=== PATIENT | female | born 1945 ===

== ENCOUNTER 2017-10-13 06:34 | Day surgery (SDC) | payer MEDICARE ==
[2017-10-13 06:55] VITALS: BMI 28.2
[2017-10-13] MEDS ORDERED: Lactated Ringer's 1,000 ML IV ONE ×2 (08:14)
--- NOTE | 2017-10-13 08:19 | CP.SDSHP ---
Same Day Surgery H & P - History Proposed Procedure: EGD Pre-Op Diagnosis: SEE NOTES - Previous Medical/Surgical History Neuro: Other Misc: Other Pain: 4.Moderate Pain - Allergies Allergies: Allergies seafood Allergy (Intermediate, Uncoded 10/13/17 06:54) RASH - Physical Exam General Appearance: N Vital Signs: Vital Signs 10/13/17 07:24 Temperature 97.5 F L Pulse Rate 72 Respiratory 19 Rate Blood Pressure 133/69 O2 Sat by Pulse 98 Oximetry Mental Status: Alert & Oriented x3 Neuro: WNL Heart: Other Lungs: WNL GI: Other - {Optional Preform as Required} Breast: WNL Abdomen: Other Rectal: Other Integument: WNL : WNL Ortho: Other ENT: WNL - Impression Pt. Evaluated Today:Candidate for Anesthesia & Procedure: Yes - Date & Time Time: 08:20 Short Stay Discharge - Short Stay Discharge Admitting Diagnosis/Reason for Visit: ABDOMINAL PAIN, DYSPEPSIA Disposition: HOME/ ROUTINE
[2017-10-13] MEDS ORDERED: Propofol 10 mg/ml Inj (20 ML) ONE (08:22)
[2017-10-13 08:26] VITALS: O2SAT 100
[2017-10-13] MEDS ORDERED: Lactated Ringer's 500 ML IV SCH (08:30)
[2017-10-13] MEDS ORDERED: Pantoprazole 40 mg EC Tab PO ONE (08:50)
[2017-10-13] MEDS ORDERED: Belladonna-Phenobarbital PO ONE (08:50)
[2017-10-13 09:02] VITALS: TEMP 97
[2017-10-13 09:16] VITALS: RESP 15
[2017-10-13 10:20] VITALS: BP 127/68; PULSE 64
== END 2017-10-13 09:50 | disposition home or self-care (01) ==
LOC: C.ENDO 06:34
PROVIDERS: ATTEND Specialist
DX: K25.9 Gastric ulcer, unspecified as acute or chronic, without hemorrhage or perforation (principal); K44.9 Diaphragmatic hernia without obstruction or gangrene; K31.9 Disease of stomach and duodenum, unspecified; R10.13 Epigastric pain; R10.9 Unspecified abdominal pain; R11.2 Nausea with vomiting, unspecified; I10 Essential (primary) hypertension; M19.90 Unspecified osteoarthritis, unspecified site
CPT/HCPCS: 43239; 88305; 88342; J2704; J7120

== ENCOUNTER 2018-08-12 06:47 | Day surgery (SDC) | payer MEDICARE, OTHER ==
[2018-08-12 07:18] VITALS: BMI 29.0
[2018-08-12 07:32] VITALS: O2SAT 100
[2018-08-12] MEDS ORDERED: Lactated Ringer's 1,000 ML IV ONE (08:15)
--- NOTE | 2018-08-12 08:17 | CP.SDSHP ---
Same Day Surgery H & P - History Proposed Procedure: EGD Pre-Op Diagnosis: SEE NOTES - Previous Medical/Surgical History Cardiac: Hypertension Neuro: Other - Allergies Allergies: Allergies seafood Allergy (Intermediate, Uncoded 08/12/18 07:14) RASH - Physical Exam General Appearance: N Vital Signs: Vital Signs 08/12/18 07:00 Temperature 97 F L Pulse Rate 67 Respiratory 19 Rate Blood Pressure 145/79 O2 Sat by Pulse 100 Oximetry Mental Status: Alert & Oriented x3 Neuro: WNL Heart: Other Lungs: WNL GI: Other - {Optional Preform as Required} Breast: WNL Abdomen: Other Rectal: Other Integument: WNL : WNL Ortho: WNL ENT: WNL - Impression Pt. Evaluated Today:Candidate for Anesthesia & Procedure: Yes - Date & Time Time: 08:17 Short Stay Discharge - Short Stay Discharge Admitting Diagnosis/Reason for Visit: DYSPEPSIA / GASTRIC ULCER Disposition: HOME/ ROUTINE
[2018-08-12] MEDS ORDERED: Propofol 10 mg/ml Inj (20 ML) ONE (08:22)
[2018-08-12] MEDS ORDERED: Lactated Ringer's 500 ML IV SCH (08:30)
[2018-08-12 09:37] VITALS: RESP 20; TEMP 98
[2018-08-12 09:45] VITALS: BP 156/82; PULSE 65
== END 2018-08-12 09:45 | disposition home or self-care (01) ==
LOC: C.ENDO 06:47
PROVIDERS: ATTEND Specialist
DX: K25.9 Gastric ulcer, unspecified as acute or chronic, without hemorrhage or perforation (principal); K21.0 Gastro-esophageal reflux disease with esophagitis; K44.9 Diaphragmatic hernia without obstruction or gangrene; K29.80 Duodenitis without bleeding; I10 Essential (primary) hypertension
CPT/HCPCS: 43239; 88305; J2704; J7120

== ENCOUNTER 2018-08-17 06:59 | Day surgery (SDC) | payer MEDICARE, OTHER ==
[2018-08-17] MEDS ORDERED: Propofol 10 mg/ml Inj (20 ML) ONE (09:12)
--- NOTE | 2018-08-17 09:23 | CP.SDSHP ---
Same Day Surgery H & P - History Proposed Procedure: colonscopy Pre-Op Diagnosis: SEE NOTES - Previous Medical/Surgical History Cardiac: Hypertension Neuro: Other Pain: 4.Moderate Pain - Allergies Allergies: Allergies seafood Allergy (Intermediate, Uncoded 08/12/18 07:14) RASH - Physical Exam General Appearance: N Vital Signs: Vital Signs 08/17/18 07:31 Temperature 97.7 F Pulse Rate 78 Respiratory 19 Rate Blood Pressure 122/78 O2 Sat by Pulse 97 Oximetry Mental Status: Alert & Oriented x3 Neuro: WNL Heart: Other Lungs: WNL GI: Other - {Optional Preform as Required} Breast: WNL Abdomen: Other Rectal: Other Integument: WNL : WNL Ortho: WNL ENT: WNL - Impression Pt. Evaluated Today:Candidate for Anesthesia & Procedure: Yes - Date & Time Time: 09:23 Short Stay Discharge - Short Stay Discharge Admitting Diagnosis/Reason for Visit: DIARRHEA Disposition: HOME/ ROUTINE
[2018-08-17] MEDS ORDERED: Lidocaine Hydrochloride 5 ML INJ ONE (09:27)
[2018-08-17] MEDS ORDERED: Belladonna-Phenobarbital PO ONE (10:05)
[2018-08-17 10:11] VITALS: O2SAT 99
[2018-08-17 10:27] VITALS: BP 124/72; PULSE 72; RESP 18; TEMP 97.9
== END 2018-08-17 10:23 | disposition home or self-care (01) ==
LOC: C.ENDO 06:59
PROVIDERS: ATTEND Specialist
DX: D12.4 Benign neoplasm of descending colon (principal); D12.7 Benign neoplasm of rectosigmoid junction; K64.8 Other hemorrhoids; K57.90 Diverticulosis of intestine, part unspecified, without perforation or abscess without bleeding
CPT/HCPCS: 45385; 88305; J2704